=== PATIENT | female | born 2000 | race American Indian/Alaskan Native ===

== ENCOUNTER 2022-01-04 14:24 | Emergency (ER) | payer SELFPAY ==
[2022-01-04 16:22] VITALS: BP 121/90
--- NOTE | 2022-01-04 16:26 | Emergency Department Report ---
Upper Extremity - HPI Chief Complaint: Extremity Injury, Upper Stated Complaint: INJURED WRIST Time Seen by Provider: 01/04/22 16:20 Occurred When: >5 Days Symptoms: Yes Pain with Movement, No Deformity, No Limited Range of Movement, No Numbness, No Weakness, No Swelling, No Bruising/Ecchymosis, No Laceration or Abrasion Other History: Patient is a 21-year-old female that comes to the emergency room with chronic left wrist pain. She states that she injured her wrist numerous years ago and she is just now started a new job and the wrist is started to hurt. She denies any new injury. She is neurovascularly intact. Rapid cap refill. +2 radial and ulnar pulses. ED Review of Systems ROS: Stated complaint: INJURED WRIST Other details as noted in HPI Comment: All other systems reviewed and negative ED Past Medical Hx - Past Medical History Previous Medical History?: No - Surgical History Past Surgical History?: No - Family History Family history: no significant - Social History Smoking Status: Never Smoker Substance Use Type: None Upper Extremity Exam - Exam General: Vital signs noted. No distress. Alert and acting appropriately. Head and Torso: No HEENT Abnormality, No Neck Tenderness, No Chest/Lungs Abnormality, No Abdominal Tenderness, No Back Tenderness Shoulder Exam: Yes Normal Range of Motion in Shoulder, No Shoulder Tenderness, No Clavicle Tenderness, No Shoulder Deformity, No AC Joint Tenderness Arm Exam: No Arm/Humerus Tenderness, No Arm Deformity Elbow: No Elbow Tenderness, No Normal Range of Motion in Elbow, No Elbow Def ormity Forearm: No Forearm Tenderness, No Forearm Deformity, No Pain with Pronation, No Pain with Supination Wrist: Yes Normal ROM in Wrist, No Wrist Tenderness, No Wrist Deformity, No Snuffbox Tenderness, No Pain with Axial Thumb Compression Hand: Yes Normal ROM in Digit(s), No Hand Tenderness, No Hand Deformity, No Digit Tenderness, No Digit(s) Deformity, No Tendon Dysfunction CMS Exam: No Broken Skin, No Normal Distal Pulses, No Normal Capillary Refill, No Normal Distal Sensation ED Course Vital Signs 01/04/22 16:20 Temperature 98.4 F Pulse Rate 102 H Respiratory 16 Rate Blood Pressure 121/90 O2 Sat by Pulse 100 Oximetry ED Medical Decision Making - Medical Decision Making Patient neurovascularly intact. No neurodeficit. Patient has a nonlife threatening emergency. Vital Signs 01/04/22 16:20 Temperature 98.4 F Pulse Rate 102 H Respiratory 16 Rate Blood Pressure 121/90 O2 Sat by Pulse 100 Oximetry Patient discharged from the ER with orthopedic follow-up - Differential Diagnosis Acute on chronic wrist pain Critical care attestation.: If time is entered above; I have spent that time in minutes in the direct care of this critically ill patient, excluding procedure time. ED Disposition Clinical Impression: Wrist pain Disposition: HOME / SELF CARE / HOMELESS Is pt being admited?: No Condition: Stable Instructions: Wrist Splint, Adult, [id number] Additional Instructions: Follow-up with orthopedic doctor for your chronic wrist pain Referral below Referrals: LUISANA RICARDO MD [Primary Care Provider] - 3-5 Days REYNA PACHECO MD [Staff Physician] - 3-5 Days Time of Disposition: 16:49
== END 2022-01-04 19:06 | disposition home or self-care (01) ==
LOC: ED 14:24
DX: M25.532 Pain in left wrist (principal); G89.29 Other chronic pain
CPT/HCPCS: 99282